=== PATIENT | female | born 1975 | race Two or more races ===

== ENCOUNTER 2024-09-29 07:00 | Day surgery (SDC) | payer BC ==
[~2024-09-29] VITALS: Ht 177.8 cm; Wt 103.0 kg
[~2024-09-29 07:00] MED LIST: ROSU20TA14 PO; SEMA2INJ3 SC; VORT1TAB PO
[2024-09-29] MEDS: IODIXANOL 320MG/ML 100ML BTL IV ONE (07:47)
[2024-09-29] MEDS: HEPARIN SODIUM (PORCINE) 5000 UNITS/ML 1ML VIAL ONE (08:06)
[2024-09-29] MEDS: VERAPAMIL 2.5MG/ML INJ 2ML VIAL IV ONE (08:06)
[2024-09-29] MEDS: fentaNYL CITRATE 100 MCG/2 ML VL ONE (08:07)
[2024-09-29] MEDS: MIDAZOLAM HCL 2MG/2ML 2ml VIAL (1mg/ml) ONE (08:07)
[2024-09-29] MEDS: LIDOCAINE 2%HCL (LOCAL ANESTH.) INJ 20ML MDV ONE (08:07)
[2024-09-29] MEDS: ANGIOMAX 250 MG VIAL IV ONE (08:08)
[2024-09-29] MEDS: SODIUM CHL 0.9% 0 ML ONE (08:08)
--- NOTE | 2024-09-29 10:24 | DVHOP2 ---
Operative Report - 2 Report Details Date: 09/29/24 Preop Diagnosis: Cardiomyopathy. CAD. Postop Diagnosis: Cardiomyopathy. Surgeon: Rory Bell MD Anesthesiologist: Conscious sedation. Anesthesia: Mac, Local (I personally ordered Versed and fentanyl. I monitored the patient throughout the entirety of the procedure.) Consent: The patient was informed of the risks and benefits of the procedure. These include but are not limited to complications of anesthesia, postoperative infection, incomplete relief of symptoms, recurrence of symptoms, damage to blood vessels, nerves and tendons, deep venous thrombosis, pulmonary embolism and possible need for repeat surgery in the future. Estimated Blood Loss: 2 cc Findings: Normal coronaries. Left ventricular dilatation and mild cardiomyopathy Indications for Surgery: Cardiomyopathy/chest pain Name of Procedure Performed Left heart catheterization. Bilateral cine coronary angiography. Left ventriculography. Procedure Details Procedure Details: Prior local anesthesia with 2% lidocaine to the right groin and full informed consent obtained patient was prepped and draped in usual fashion followed by placement of a six [place] sheath into the right radial artery through which a Walter catheter was used for ventriculography and cannulation of both right and left coronary ostia without complications. Hemodynamics: aortic blood pressure was 110/70. End-diastolic pressure was 16 without gradient across the aortic valve on pullback. Coronary anatomy: The RCA is a large dominant vessel it is normal in its proximal mid and distal segments. PDA and posterolateral branches are normal. Left main is large and normal. Left anterior descending coronary artery is a large vessel it is normal in its proximal mid and distal segments. Septals and diagonals are normal. Circumflex is large it is codominant. Two obtuse marginal branches that are large and normal present. The circumflex itself is large and normal. Ventriculography: Ventriculography was performed in the M[place] projection showing global hypokinesis and EF of about 40%. There is dilatation of the left ventricle. Impression: Normal left ventricular end-diastolic pressure at rest. Mildly decreased left ventricular ejection fraction. Normal coronary arteries. Recommendation: Continue risk factor modification afterload reduction. Condition Good Disposition Home Date of Service: Sep 29, 2024 Billing Provider: RORY BELL Sr., MD Cardiology Common Codes: 09661-AGKSIKY INP/OBS CARE (High) Cardiology Procedure Codes: 01273-CNZR ADD CORONARY BRANCH, 78368-EZAQ HEART CATH W/INTRA INJ RORY BELL Sr., MD Sep 29, 2024 10:24
== END 2024-09-29 12:45 | disposition home or self-care (01) ==
LOC: CATH 07:00
PROVIDERS: ATTEND Internal Medicine
DX: I42.9 Cardiomyopathy, unspecified (principal); R07.89 Other chest pain; I25.10 Atherosclerotic heart disease of native coronary artery without angina pectoris; F32.2 Major depressive disorder, single episode, severe without psychotic features; E78.2 Mixed hyperlipidemia; E66.9 Obesity, unspecified; Z68.32 Body mass index [BMI] 32.0-32.9, adult; Z79.899 Other long term (current) drug therapy; Z98.890 Other specified postprocedural states; I51.7 Cardiomegaly
CPT/HCPCS: 93458; C1887; C1894; J1644; J2250; J3010; Q9967; 99152